=== PATIENT | female | born 1935 | race Caucasian/White ===

== ENCOUNTER → 2016-07-13 | Outpatient (CLI) | payer OTHER | END | disposition home or self-care (01) | LOC: CVU 09:40 | PROVIDERS: ATTEND Family Medicine | DX: I08.2 Rheumatic disorders of both aortic and tricuspid valves (principal); I51.7 Cardiomegaly; I10 Essential (primary) hypertension | CPT/HCPCS: 93017; 93306 ==

== ENCOUNTER 2017-07-07 11:45 | Emergency (ER) | payer MEDICARE, MEDICAID ==
[~2017-07-07] VITALS: Ht 160 cm; Wt 61.8 kg
[2017-07-07 12:38] LABS: BASOPHILS # (AUTO) 0.05 x10^3/uL (0-0.1); BASOPHILS % (AUTO) 1 % (0-1); EOSINOPHILS # (AUTO) 0.04 x10^3/uL (0-0.4); EOSINOPHILS % (AUTO) 1 % (1-7); LYMPHOCYTES % (AUTO) 32 % (22-44); MD NO; MEAN CORPUSCULAR HEMOGLOBIN 26.9 pg (27.0-34.8); MEAN CORPUSCULAR HGB CONC 32.1 g/dL (32.4-35.8); MEAN CORPUSCULAR VOLUME 83.8 fL (80-100); MEAN PLATELET VOLUME 6.9 fL (7.4-10.4); MONOCYTES % (AUTO) 10 % (2-9); NEUTROPHILS # (AUTO) 3.33 x10^3/uL (1.8-6.8); NEUTROPHILS % (AUTO) 56 % (42-75); PLATELET COUNT 311 x10^3/uL (130-400); RED CELL DISTRIBUTION WIDTH 14.1 % (9.6-15.2)
[2017-07-07 12:51] LABS: ALANINE AMINOTRANSFERASE 17 U/L (12-78); ALBUMIN 3.3 g/dL (3.4-5.0); ANION GAP 6 mmol/L (5-15); CALCIUM 9.5 mg/dL (8.5-10.1); CHLORIDE 107 mmol/L (98-107); CREATININE 0.85 mg/dL (0.55-1.02)
[2017-07-07 12:53] LABS: ALKALINE PHOSPHATASE 104 U/L (45-117); BILIRUBIN,TOTAL 0.8 mg/dL (0.2-1.0); TOTAL PROTEIN 7.7 g/dL (6.4-8.2)
[2017-07-07] MEDS ORDERED: CITA10TA4 PO (13:07)
[2017-07-07 13:42] LABS: HCT (SEDRATE) 36.8 % (34.6-47.8)
[2017-07-07 14:17] VITALS: BP 107/56
== END 2017-07-07 14:57 | disposition left against medical advice (07) ==
LOC: ED 14:27
DX: M25.532 Pain in left wrist (principal); M19.032 Primary osteoarthritis, left wrist; Z90.49 Acquired absence of other specified parts of digestive tract
CPT/HCPCS: 29125; 36415; 73110; 80053; 85025; 85651; 99285; J7512

== ENCOUNTER → 2018-06-21 | Outpatient (CLI) | payer MEDICARE, MEDICAID ==
[~2018-06-21] MED LIST: CITA10TA4 PO
== END | disposition home or self-care (01) ==
LOC: CFH 14:09
PROVIDERS: ATTEND Nurse Practitioner Family
DX: M95.4 Acquired deformity of chest and rib (principal); M47.814 Spondylosis without myelopathy or radiculopathy, thoracic region
CPT/HCPCS: 71046; 71120